=== PATIENT | male | born 1945 | race Caucasian/White ===

== ENCOUNTER → 2017-01-29 | Outpatient (CLI) | payer MEDICARE ==
--- NOTE | 2017-01-29 15:10 | US ---
EXAMINATION TYPE: US carotid duplex BILAT DATE OF EXAM: 01/29/2017 COMPARISON: NONE CLINICAL HISTORY: R09.89 Carotid Bruit. EXAM MEASUREMENTS: RIGHT: Peak Systolic Velocity (PSV) cm/sec ----- Right CCA: 56.4 ----- Right ICA: 120.0 ----- Right ECA: 67.8 ICA/CCA ratio: 2.1 RIGHT: End Diastole cm/sec ----- Right CCA: 9.3 ----- Right ICA: 40.9 ----- Right ECA: 8.1 LEFT: Peak Systolic Velocity (PSV) cm/sec ----- Left CCA: 72.8 ----- Left ICA: 85.1 ----- Left ECA: 96.0 ICA/CCA ratio: 0.8 LEFT: End Diastole cm/sec ----- Left CCA: 10.9 ----- Left ICA: 24.2 ----- Left ECA: 9.2 VERTEBRALS (direction of flow): Right Vertebral: Antegrade Left Vertebral: Antegrade Grayscale images show moderate eccentric plaque at right carotid bulb. Velocity measurements are uppe r limits of normal to mildly enlarged. There is mild to moderate eccentric hyperechoic plaque at left carotid bulb. Velocity measurements are within normal limits. IMPRESSION: Moderate right greater than left atherosclerotic change with stenosis approaching near 5 0% in right internal carotid artery is suspected. Consider CTA or MRA of the neck to further evaluate especially if this is side of clinical suspicion .
== END ==
LOC: RADUSWWP 14:30
PROVIDERS: ATTEND Family Medicine
DX: I65.21 Occlusion and stenosis of right carotid artery (principal)
CPT/HCPCS: 93880

== ENCOUNTER → 2018-02-11 | Outpatient (CLI) | payer MEDICARE ==
--- NOTE | 2018-02-11 17:16 | US ---
EXAMINATION TYPE: US carotid duplex BILAT DATE OF EXAM: 02/11/2018 COMPARISON: US CLINICAL HISTORY: R09.89 Carotid bruit. EXAM MEASUREMENTS: RIGHT: Peak Systolic Velocity (PSV) cm/sec ----- Right CCA: 77.3 ----- Right ICA: 96.3 ----- Right ECA: 56.4 ICA/CCA ratio: 1.2 RIGHT: End Diastole cm/sec ----- Right CCA: 10.1 ----- Right ICA: 23.7 ----- Right ECA: 0.0 LEFT: Peak Systolic Velocity (PSV) cm/sec ----- Left CCA: 58.1 ----- Left ICA: 86.4 ----- Left ECA: 130.2 ICA/CCA ratio: 1.5 LEFT: End Diastole cm/sec ----- Left CCA: 11.0 ----- Left ICA: 25.9 ----- Left ECA: 13.7 VERTEBRALS (direction of flow): Right Vertebral: Antegrade Left Vertebral: Antegrade Rhythm: Normal No significant stenosis seen. Moderate bilateral plaque, mildly elevated left ECA. IMPRESSION: There is antegrade flow in the vertebral arteries. The images and measurements suggest close to 50% stenosis in both internal carotid arteries. Criteria for Assigning % of Stenosis / Diameter reduction (Estimation based on the indirect measurements of the internal carotid artery velocities (ICA PSV). 1. Normal (no stenosis)=ICA PSV < 125 cm/s: ratio < 2.0: ICA EDV<40 cm/s. 2. Less than 50% stenosis=ICA PSV < 125 cm/s: ratio < 2.0: ICA EDV<40 cm/s. 3. 50 to 69% stenosis=ICA PSV of 125 to 230 cm/s: ration 2.0 ? 4.0: ICA EDV 40-100 cm/s. 4. Greater than 70% stenosis to near occlusion= ICA PSV > 230 cm/s: ratio > 4.0: ICA EDV > 100 cm/s. 5. Near occlusion= ICA PSV velocities may be low or undetectable: variable ratio and ICA EDV. 6. Total occlusion=unable to detect flow.
== END | disposition home or self-care (01) ==
LOC: RADUSWWP 16:41
PROVIDERS: ATTEND Family Medicine
DX: R09.89 Other specified symptoms and signs involving the circulatory and respiratory systems (principal)
CPT/HCPCS: 93880

== ENCOUNTER → 2019-07-01 | Outpatient (CLI) | payer MEDICARE ==
--- NOTE | 2019-07-01 12:44 | US ---
EXAMINATION TYPE: US carotid duplex BILAT DATE OF EXAM: 07/01/2019 COMPARISON: Prior ultrasound 2018 CLINICAL HISTORY: I65.29 Carotid artery stenosis. Stenosis, pt has no complaints at this time EXAM MEASUREMENTS: RIGHT: Peak Systolic Velocity (PSV) cm/sec ----- Right CCA: 85.1 ----- Right ICA: 103.0 ----- Right ECA: 52.0 ICA/CCA ratio: 1.2 RIGHT: End Diastole cm/sec ----- Right CCA: 18.0 ----- Right ICA: 34.4 ----- Right ECA: 0.0 LEFT: Peak Systolic Velocity (PSV) cm/sec ----- Left CCA: 66.8 ----- Left ICA: 105.1 ----- Left ECA: 130.2 ICA/CCA ratio: 1.6 LEFT: End Diastole cm/sec ----- Left CCA: 14.5 ----- Left ICA: 43.5 ----- Left ECA: 22.0 VERTEBRALS (direction of flow): Right Vertebral: Antegrade Left Vertebral: Antegrade Rhythm: Arrhythmia Pappas scale images show persistent mild to moderate eccentric plaque bilateral bulbs greater on the le ft but the velocity measurements and ratios remain within normal limits. IMPRESSION: [id number] atherosclerotic change bilaterally without hemodynamically significan t stenosis. Note is made there is arrhythmia during real-time scanning and on images saved, if this i s not known findings further investigation with Holter monitoring would be advised. Criteria for Assigning % of Stenosis / Diameter reduction (Estimation based on the indirect measurements of the internal carotid artery velocities (ICA PSV). 1. Normal (no stenosis)=ICA PSV < 125 cm/s: ratio < 2.0: ICA EDV<40 cm/s. 2. Less than 50% stenosis=ICA PSV < 125 cm/s: ratio < 2.0: ICA EDV<40 cm/s. 3. 50 to 69% stenosis=ICA PSV of 125 to 230 cm/s: ration 2.0 ? 4.0: ICA EDV 40-100 cm/s. 4. Greater than 70% stenosis to near occlusion= ICA PSV > 230 cm/s: ratio > 4.0: ICA EDV > 100 cm/s. 5. Near occlusion= ICA PSV velocities may be low or undetectable: variable ratio and ICA EDV. 6. Total occlusion=unable to detect flow.
== END | disposition home or self-care (01) ==
LOC: RADUSWWP 12:08
PROVIDERS: ATTEND Family Medicine
DX: I65.23 Occlusion and stenosis of bilateral carotid arteries (principal)
CPT/HCPCS: 93880